=== PATIENT | male | born 1955 | race Caucasian/White ===

== ENCOUNTER 2024-02-20 10:27 | Day surgery (SDC) | payer MEDICARE ==
[2024-02-17 11:02] VITALS: BMI 30.1
[2024-02-20] MEDS ORDERED: Ondansetron PF 4 MG/2 ML Vial ONE ×2 (13:03→13:10)
[2024-02-20] MEDS ORDERED: Lidocaine 1% PF 5 ML VIAL ONE (13:10)
[2024-02-20] MEDS ORDERED: PROPOFOL 200 MG/20 ML VIAL ONE (13:10)
== END 2024-02-20 15:40 | disposition home or self-care (01) ==
LOC: MRI 10:27
PROVIDERS: ATTEND Nurse Practitioner Family
DX: M54.16 Radiculopathy, lumbar region (principal); I10 Essential (primary) hypertension; E78.5 Hyperlipidemia, unspecified; G47.33 Obstructive sleep apnea (adult) (pediatric); F32.A Depression, unspecified; E11.9 Type 2 diabetes mellitus without complications; I11.9 Hypertensive heart disease without heart failure; M17.0 Bilateral primary osteoarthritis of knee; M06.9 Rheumatoid arthritis, unspecified; E78.00 Pure hypercholesterolemia, unspecified; F17.200 Nicotine dependence, unspecified, uncomplicated; Z79.899 Other long term (current) drug therapy; Z79.84 Long term (current) use of oral hypoglycemic drugs
CPT/HCPCS: 72148; J2405; J2704